=== PATIENT | female | born 1995 | race Caucasian/White ===

== ENCOUNTER → 2025-05-06 | Outpatient (CLI) | payer BC, SELFPAY ==
--- NOTE | 2025-05-06 | XR_ITS ---
Examination: Foot, right, 3 views Technique: AP, oblique, lateral views foot, 3 views Date and time of exam: May 06, 2025 1115 hours INDICATIONS: Right foot pain months. FINDINGS: Mild bunion deformity. No fracture or dislocation. No erosive or other significant arthritic change 3 mm plantar bony calcaneal spur IMPRESSION: Mild bunion deformity 3 mm plantar bony calcaneal spur
== END | disposition home or self-care (01) ==
PROVIDERS: PCP Family Medicine; Referring Provider Family Medicine; Visit Provider Family Medicine
DX: M21.611 Bunion of right foot (principal); M77.31 Calcaneal spur, right foot
CPT/HCPCS: 73630